=== PATIENT | female | born 1950 | race Caucasian/White ===

== ENCOUNTER 2017-07-21 15:42 | Emergency (ER) | payer OTHER ==
[~2017-07-21] VITALS: Ht 165.1 cm; Wt 127.0 kg
[2017-07-21 15:56] VITALS: BP 127/79
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
[2017-07-21] MEDS ORDERED: PERCOCET 5-3251 EACH PO ×4 (18:04→18:29)
[2017-07-21] MEDS ORDERED: BACLOFEN10 M1 PO ×2 (18:04→18:26)
[2017-07-21] MEDS ORDERED: IBUPROFEN600 M1 PO ×2 (18:04→18:26)
[2017-07-21] MEDS ORDERED: ZOFRAN ODT4 M1 SL (18:26)
== END 2017-07-21 18:37 ==
LOC: ERH 15:42
DX: S22.41XA Multiple fractures of ribs, right side, initial encounter for closed fracture (principal); R07.9 Chest pain, unspecified; V49.40XA Driver injured in collision with unspecified motor vehicles in traffic accident, initial encounter; Y92.9 Unspecified place or not applicable
CPT/HCPCS: 71100-RT